=== PATIENT | male | born 1970 | race African-American/Black ===

== ENCOUNTER 2019-06-08 | Emergency (ER) | payer OTHER ==
[2019-06-08] MEDS ORDERED: CEPHALEXIN500 M1 PO (19:35)
--- NOTE | 2019-06-14 13:18 | NUR ---
Called COVID results to patient.
== END 2019-06-08 20:30 | disposition home or self-care (01) | DRG 605 ==
PROC: 0HQMXZZ Repair Right Foot Skin, External Approach (ICD-10-PCS; principal; 2019-06-08)
DX: S91.311A Laceration without foreign body, right foot, initial encounter (principal); V89.2XXA Person injured in unspecified motor-vehicle accident, traffic, initial encounter; S16.1XXA Strain of muscle, fascia and tendon at neck level, initial encounter; R05 Cough; R50.9 Fever, unspecified; Z20.828 Contact with and (suspected) exposure to other viral communicable diseases